=== PATIENT | female | born 1940 ===

== ENCOUNTER 2019-01-11 07:47 | Outpatient (CLI) | payer OTHER | END 2019-01-11 08:00 | disposition home or self-care (01) | LOC: NUCLEAR 07:47 | DX: R19.4 Change in bowel habit (principal); K30 Functional dyspepsia; K31.84 Gastroparesis | CPT/HCPCS: 78264; A9541 ==

== ENCOUNTER 2019-02-18 07:31 | Outpatient (CLI) | payer OTHER | END 2019-02-18 07:38 | disposition home or self-care (01) | LOC: NUCLEAR 07:31 | DX: I25.6 Silent myocardial ischemia (principal) | CPT/HCPCS: 78452; 93017; A9500; J1250 ==